=== PATIENT | male | born 1990 | race Caucasian/White ===

== ENCOUNTER 2025-04-27 07:24 | Outpatient (RCR) | payer OTHER, SELFPAY | END 2025-04-27 23:59 | disposition home or self-care (01) | LOC: RPT 07:24 | PROVIDERS: ATTENDING PHYSICIAN Family Medicine | DX: R10.30 Lower abdominal pain, unspecified (principal); Z73.6 Limitation of activities due to disability; M06.9 Rheumatoid arthritis, unspecified; R35.0 Frequency of micturition; M62.81 Muscle weakness (generalized) | CPT/HCPCS: 97110; 97112; 97162 ==